=== PATIENT | male | born 1940 | race Caucasian/White ===

== ENCOUNTER 2022-02-07 07:32 | Day surgery (SDC) | payer OTHER, MEDICARE ==
[2022-02-02 17:22] VITALS: BMI 20.7
[2022-02-07] MEDS: CYCLOPENTOLATE 2% OPHTH SOLN 2 ML BOTTLE ONE ×3 (07:55→08:05)
[2022-02-07] MEDS: TROPICAMIDE 1% OPHTH SOLN 15 ML BOTTLE ONE ×3 (07:55→08:05)
[2022-02-07] MEDS: CIPROFLOXACIN 0.3% EYE DROPS 5 ML BOTTLE ONE ×3 (07:55→08:05)
[2022-02-07] MEDS: PHENYLEPHRINE 2.5% OPHTH SOLN 15 ML BOTTLE ONE ×3 (07:55→08:05)
[2022-02-07 08:04] VITALS: RESP 16
[2022-02-07] MEDS ORDERED: LIDOCAINE 1% P/F 10 MG/ML VIAL ONE (08:30)
[2022-02-07] MEDS ORDERED: BSS (NA/CA/MG/K) BALANCED SALT SOLUTION OPHTH SOLN 15 ML BOTTLE ONE (08:30)
[2022-02-07] MEDS ORDERED: NEO/POLYMYX B SULF/DEXAMETH OPHTHALMIC 5ML BOTTLE ONE (08:30)
[2022-02-07] MEDS ORDERED: TETRACAINE 0.5% OPHTH SOLN 2 ML BOTTLE ONE (08:30)
[2022-02-07] MEDS ORDERED: CARBACHOL 0.01% INTRA-OCULAR 1.5 ML VIAL ONE (08:30)
[2022-02-07] MEDS ORDERED: MIDAZOLAM HCL 2 MG/2 ML SINGLE DOSE VIAL ONE (08:57)
[2022-02-07 09:47] VITALS: TEMP 97.5
[2022-02-07 11:23] VITALS: BP 119/72; PULSE 74
== END 2022-02-07 10:15 | disposition home or self-care (01) ==
LOC: FASU 07:32
PROVIDERS: ATTEND Ophthalmology
PROC: 08RK3JZ Replacement of Left Lens with Synthetic Substitute, Percutaneous Approach (ICD-10-PCS; principal; 2022-02-07 09:16)
DX: H26.8 Other specified cataract (principal)
CPT/HCPCS: 66984; V2632

== ENCOUNTER 2022-07-04 08:34 | Day surgery (SDC) | payer OTHER, MEDICARE ==
[2022-07-02 15:35] VITALS: BMI 20.7
[2022-07-04] MEDS ORDERED: MIDAZOLAM HCL 2 MG/2 ML SINGLE DOSE VIAL ONE (08:58)
[2022-07-04] MEDS: PHENYLEPHRINE 2.5% OPTHALMIC DROP 2ML BOTTLE ONE ×3 (09:10→09:20)
[2022-07-04] MEDS: CIPROFLOXACIN 0.3% EYE DROPS 5 ML BOTTLE ONE ×3 (09:10→09:20)
[2022-07-04] MEDS: TROPICAMIDE 1% OPHTH SOLN 15 ML BOTTLE ONE ×3 (09:10→09:20)
[2022-07-04] MEDS: CYCLOPENTOLATE 2% OPHTH SOLN 2 ML BOTTLE ONE ×3 (09:10→09:20)
[2022-07-04] MEDS ORDERED: CARBACHOL 0.01% INTRA-OCULAR 1.5 ML VIAL ONE (10:10)
[2022-07-04] MEDS ORDERED: NEO/POLYMYX B SULF/DEXAMETH OPHTHALMIC 5ML BOTTLE ONE (10:10)
[2022-07-04] MEDS ORDERED: BSS (NA/CA/MG/K) BALANCED SALT SOLUTION OPHTH SOLN 15 ML BOTTLE ONE (10:10)
[2022-07-04 11:07] VITALS: RESP 20; TEMP 97.1
[2022-07-04 11:35] VITALS: BP 115/76; PULSE 55
== END 2022-07-04 11:29 | disposition home or self-care (01) ==
LOC: FASU 08:34
PROVIDERS: ATTEND Ophthalmology
PROC: 08RJ3JZ Replacement of Right Lens with Synthetic Substitute, Percutaneous Approach (ICD-10-PCS; principal; 2022-07-04 10:31)
DX: H26.8 Other specified cataract (principal)
CPT/HCPCS: 66984; V2632